=== PATIENT | male | born 1975 | race Caucasian/White ===

== ENCOUNTER 2024-08-31 11:55 | Outpatient (CLI) | payer BC, SELFPAY ==
--- NOTE | 2024-08-31 11:15 | DI.RAD_ITS ---
Exam(s) XR SHOULDER LT COMPLETE 2+V EXAM: XR SHOULDER LT COMPLETE 2+V CLINICAL HISTORY: left shoulder pain,m25.512. TECHNIQUE: 2D digital imaging was performed. Three views. COMPARISON: No exams were available for comparison FINDINGS: BONES: No acute fracture is present. No bony destructive lesion is seen. JOINTS: No dislocation present. Mild spurring at the AC joint. Mild spurring at the margin of the g lenoid. Glenohumeral joint space is maintained. SOFT TISSUE: Normal. IMPRESSION: Mild degenerative changes. DATA REPOSITORY: RADIATION DOSE DELIVERED:
--- OUTSIDE RECORDS SUMMARY | 2024-08-31 11:57 | XMS_ITS | Encounter Summary ---
Author Organization [facility] Address [address] [place] [address] Care Team Providers Care Automotive Sales Representative Name Role Phone Unknown, Provider Primary Care Provider Unava ilable Encounter Details Date Type Department Care Team (Late st Contact Info) Description 06/24/2023 Lab Requisition [facility] Pathology & Laboratory Medicine - [facility] [address] [place] [address] Damon Fraga, [address] [place] [address] Neoplasm of unspecified behavior of bone, soft tissue, and skin Social History Tobacco Use Types Packs/Day Years Used Date Smoking Tobacco: Never Assessed Sex and Gender Information Value Date Recorded Sex Assigned at Not on file Legal Sex Male 17:52 EDT Gender Identity Not on file Sexual Orientation Not on file documented as of this encounter Plan of Treatment Not on file documented as of this encounter Procedures Procedure Name Priority Date/Time Associated Diagnosis Comments SURGICAL PATHOLOGY Today 06/23/2023 11 :05 EDT Neoplasm of unspecified behavior of bone, soft tissue, and skin documented in this encounter Results * SURGICAL PATHOLOGY (06/23/2023 11:05 EDT) Note to Patient The following pathology results have been interpreted by your pathologist and may be available to you before your health provider has had the opportunity to review them. Please allow time for your provider to receive these results and explore management options, if applicable. 06/26/2023 10:19 EDT [facility] Final Diagnosis A. SKIN OF CHEEK, LEFT, SHAVE BIOPSY: - Intradermal nevus. 06/26/2023 10:19 EDT [facility] Attestation By the signature below, the attending physician certifies that they have 1) personally conducted a gross and/or microscopic examination of the described specimen(s), and/or personally interpreted the results of laboratory testing of the described specimen(s), and 2) personally rendered or confirmed the above diagnosis. 06/26/2023 10:19 [facility] at 1019 Clinical History Clinical diagnosis code: D49.2 06/26/2023 10:19 [facility] Gross Description A. Received in formalin labelled with proper patient identification (initials C, J) and left cheek is a shave biopsy of a roughly ovoid brown, finely nodular, hair-bearing papule (0.9 x 0.7 x 0.3 cm). The margin is inked blue, the specimen is trisected and entirely submitted in A1. Caryn Collazo 06/25/2023 11:39 06/26/2023 10:19 [facility] Performing Lab [facility] 06/26/2023 10:19 [facility] Scanned Images 06/26/2023 10:19 [facility] Tissue SPECIMEN FROM SKIN / Unknown 06/23/2023 11:05 EDT 06/24/2023 17:54 EDT us Damon Fraga DO PATHOLOGY ORDERABLES Fi nal Result Performing Organization Address City/State/[facility] Co de Phone Number [facility] [address] [place] [address] documented in this encounter Visit Diagnoses Diagnosis Neoplasm of unspecified behavior of bone, soft tissue, and skin documented in this encounter Care Teams Automotive Sales Representative Relationship Specialty Start Date End Date Unknown, Provider, PCP - General 05/22/23 documented as of this encounter
--- OUTSIDE RECORDS SUMMARY | 2024-08-31 11:57 | XMS_ITS | Continuity of Care Document ---
Author Organization [facility] Address [address] [place] [address] Care Team Providers Care Psychology Instructor Name Role Phone NOE BOWEN Primary Care Paularyan emmanuel Unavailable Encounter [facility] [id number] [id number] Date(s): 06/23/23 - 06/23/23 [facility] [address] [place] [address] us Encounter Diagnosis Abnormal skin growth(Discharge Diagnosis) - 06/22/23 Melanocytic nevus(Discharge Diagnosis) - 06/22/23 Discharge Disposition: Home or Self Care Attending Physician: Damon Fraga DO Referring Physician: NOE BOWEN Assessment and Plan Future Appointments Medications allopurinol 300 mg oral tablet 300 mg = 1 tab, Oral, BID, # 60 tab, 0 Refill(s) Start Date: 06/22/23 Status: Ordered amLODIPine 2.5 mg oral tablet 2.5 mg = 1 tab, Oral, Daily, # 30 tab, 0 Refill(s) Start Date: 06/22/23 Status: Ordered colchicine 0.6 mg oral capsule 0.6 mg = 1 cap, Oral, BID, # 60 cap, 0 Refill(s) Start Date: 06/22/23 Status: Ordered Fibricor 35 mg oral tablet 35 mg = 1 tab, Oral, Daily, # 30 tab, 0 Refill(s) Start Date: 06/22/23 Status: Ordered losartan 50 mg oral tablet 50 mg = 1 tab, Oral, Daily, # 30 tab, 0 Refill(s) Start Date: 06/22/23 Status: Ordered meloxicam 7.5 mg oral tablet 7.5 mg = 1 tab, Oral, Daily, # 30 tab, 0 Refill(s) Start Date: 06/22/23 Status: Ordered metFORMIN 500 mg oral tablet 500 mg = 1 tab, Oral, BID, # 180 tab, 0 Refill(s) Start Date: 06/22/23 Status: Ordered methocarbamol 500 mg oral tablet 1,000 mg = 2 tab, Oral, QID, # 80 tab, 0 Refill(s) Start Date: 06/22/23 Stop Date: 07/02/23 Status: Ordered traZODone 50 mg oral tablet 50 mg = 1 tab, Oral, TID, # 90 tab, 0 Refill(s) Start Date: 06/22/23 Status: Ordered zolpidem 10 mg oral tablet 10 mg = 1 tab, Oral, every day at bedtime, PRN as needed for insomnia, 0 Refill(s) Start Date: 06/22/23 Status: Ordered Problem List Condition Confirmation Course Effective Dates Status Health Status Informant Gout Confirmed Active Essential hypertension in child Confirmed Active Melanocytic nevus Confirmed Active Prediabetes Confirmed Active Pure hyperglyceridemia Confirmed Active Abnormal skin growth Confirmed Active Type 2 diabetes mellitus without complication Confirmed Active Physician Outpatient Note * Sanjana Albright: MODIFY Damon Fraga, DO: PERFORM, MODIFY Damon Fraga, DO: MODIFY Event Display: Office Clinic Note Physician Authored Date: [id number] THANG KRUEGER :1975 Age:47 years Sex:Male Visit Date:06/23/2023 Primary Care Physician: CHRISTINE AUSTIN-ZAIRE, NOE Freeman History of Present Illness New patient referred to the office for check of left cheek mole that has increased in size and changed in color. Patient notes that area is tender to the touch. Patient notes that he would like the area removed. He has had it for some time although is getting bigger and more tender. He does not have a history of skin cancer or a family history of it. Review of Systems Fatigue?? Negative.?? Fever?? Negative.?? Weight Loss?? Negative.?? Snoring?? Negative.?? Hoarseness?? Negative.?? Glaucoma?? Negative.?? Double Vision?? Negative.?? Other eye problems?? Negative.?? Loss of taste?? Negative.?? Loss of smell?? Negative.?? Sinus trouble?? Negative.?? Difficulty swallowing?? Negative.?? High blood pressure?? Negative.?? Heart failure?? Negative.?? Chest pain/Angina?? Negative.?? Heart Attack?? Negative.?? Ankle/Foot swelling?? Negative.?? Shortness of breath?? Negative.?? High cholesterol?? Negative.?? Cough?? Negative.?? Diabetes?? Negative.?? Ulcer?? Negative.?? Blood in Stool ?? Negative.?? Colitis?? Negative.?? Prostate Problems?? Negative.?? Kidney Stones? ? Negative.?? Hepatitis?? Negative.?? Liver trouble?? Negative.?? Gall bladder problems?? Negative.?? Kidney infection?? Negative.?? Blood in urine?? Negative.?? Bladder infection?? Negative.?? Arthritis?? Negative.?? Fibromyalgia?? Negative.?? Bone disease?? Negative.?? Joint disease?? Negative.??Back problems?? Negative.?? Breast (lump/tumor)?? Negative.?? Rashes?? Negative.?? Eczema?? Negative.?? Headaches?? Negative.?? Meningitis?? Negative.?? Thyroid Problems?? Negative.?? Pituitary Problems?? Negative.?? Bleeding Disorder?? Negative.?? Anemia?? Negative.?? Lymphoma?? Negative.?? Venereal Disease?? Negative.?? AIDS/HIV?? Negative.?? Cancer?? Negative.?? Blood transfusion?? Negative.??Seizures?? Negative.?? Loss of consciousness?? Negative.?? Head Injury/concussion?? Negative.?? Multiple Sclerosis?? Negative.?? Nervous disorder?? Negative.?? Anxiety?? Negative.?? Depression?? Negative.?? Frequent infection?? Negative.?? Environmental allergies?? Negative.?? Hay Fever?? Negative.?? Reflux?? Negative.?? Sleep apnea?? Negative.?? Physical Exam Vitals & Measurements GENERAL APPEARANCE:??The patient is awake, alert, and oriented and in no acute distress, Appears nutritionally sound, Healthy in appearance, Voice is strong, with no stridor or stertor, Handling secretions without difficulty.?PSYCH:??affect normal, good eye contact, oriented to person, oriented to place, oriented to time.?NEURO:??CN's II-XII grossly intact, Gait is normal, The patient has endpoint nystagmus only.?HEENT:??The patient is normocephalic with a normal facies with cranial nerves 2 through 12 bilaterally equal and intact. Pupils are equal and reactive to light with extraocular movements bilaterally equal and intact. There is no proptosis or enophthalmos. ?NECK:??There is no palpable lymphadenopathy. ?SKIN:??raised lesion of the left cheek??tender and increasing in??size ?MUSCULOSKELETAL:??normal gait and station.?? Procedure Surgery Consent??There was a full discussion of all treatment options including conservative management, second opinion and surgical intervention. The patient and or family has opted to proceed with surgical intervention. We have discussed risks and complications as it relates to the procedure and postoperative period, including but not limited to those listed on the consent. All of their questions were answered, consent was reviewed and signed. There is no history of any bleeding disorders or anesthesia complications. We will proceed..?PFP Shave Excision with Dermablade ? Location:??left cheek ? Size:??0.6-1.0 cm ?Prep:??Betadine used to prep site.?Consent:??The procedure was discussed, risks and complications explained and consent obtained.?Procedure:??Shave excision was performed, hemostasis was achieved and no complications.? Discharge Instructions:??Keep area moist with ointment and clean, follow up in seven days for pathology.?? Medical Decision Making: Upon injection there was??evidence of the cecum and sebaceous material. ??The patient still opted to have this shaved, he would like this looked at from a pathological standpoint. ??We did discuss formal excision with sutures he has deferred this Assessment/Plan 1.??Abnormal skin growth??D49.2 Discussed that we could proceed with shave biopsy today. Patient was understanding of the process and possible need for further excision if this returns as a cyst to remove the capsule. Patient was understanding and would like to proceed with shave today. Consent obtained, patient provided with post ??biopsy care instructions. He understands that we would call him in approximately 1 week with pathology results. 2.??Melanocytic nevus??D22.9 Follow Up Instructions prn, calling with pathology results Problem List/Past Medical History Ongoing Abnormal skin growth Essential hypertension in child Gout Melanocytic nevus Prediabetes Pure hyperglyceridemia Type 2 diabetes mellitus without complication Historical No qualifying data Medications allopurinol 300 mg oral tablet, 300 mg= 1 tab, Oral, BID amLODIPine 2.5 mg oral tablet, 2.5 mg= 1 tab, Oral, Daily colchicine 0.6 mg oral capsule, 0.6 mg= 1 cap, Oral, BID Fibricor 35 mg oral tablet, 35 mg= 1 tab, Oral, Daily losartan 50 mg oral tablet, 50 mg= 1 tab, Oral, Daily meloxicam 7.5 mg oral tablet, 7.5 mg= 1 tab, Oral, Daily metFORMIN 500 mg oral tablet, 500 mg= 1 tab, Oral, BID methocarbamol 500 mg oral tablet, 1000 mg= 2 tab, Oral, QID traZODone 50 mg oral tablet, 50 mg= 1 tab, Oral, TID zolpidem 10 mg oral tablet, 10 mg= 1 tab, Oral, every night at bedtime, PRN Allergies No active allergies Electronically Signed on 06/23/23 11:15 AM Damon Fraga, Patient Care team information Care Team Personnel Name: CHRISTINE WINKLER, NOE Freeman Position: No Access Member Role: Primary Care Physician
--- OUTSIDE RECORDS SUMMARY | 2024-08-31 11:57 | XMS_ITS | Clinical Summary ---
Author Organization [facility] Address [address] [place] [address] Care Team Providers Care Job Compositor Name Role Phone Unknown, Provider Primary Care Provider Unava ilable Social History Tobacco Use Types Packs/Day Years Used Date Smoking Tobacco: Never Assessed Sex and Gender Information Value Date Recorded Sex Assigned at Not on file Legal Sex Male 17:52 EDT Gender Identity Not on file Sexual Orientation Not on file Plan of Treatment Health Maintenance Due Date Last Done Comments Hepatitis C Screen 1975 Hepatitis B Vaccine (1 of 3 - 19+ 3-dose series) 08/28 COVID-19 Vaccine (2023- season) 2024 Insurance [facility] Address: [address] [address] Care Teams Job Compositor Relationship Specialty Start Date End Date Unknown, Provider, PCP - General 05/22/23
--- OUTSIDE RECORDS SUMMARY | 2024-08-31 11:57 | XMS_ITS | Referral Summary ---
Author Organization [facility] Address [address] [place] [address] Care Team Providers Care Puff Iron Operator Name Role Phone Unknown, Provider Primary Care Provider Unava ilable Social History Tobacco Use Types Packs/Day Years Used Date Smoking Tobacco: Never Assessed Sex and Gender Information Value Date Recorded Sex Assigned at Not on file Legal Sex Male 17:52 EDT Gender Identity Not on file Sexual Orientation Not on file Plan of Treatment Not on file [place] [address] [place] [address] Care Teams Puff Iron Operator Relationship Specialty Start Date End Date Unknown, Provider, PCP - General 05/22/23
--- OUTSIDE RECORDS SUMMARY | 2024-08-31 11:57 | XMS_ITS | Continuity of Care Document ---
Author Organization [facility] Address [address] [place] [address] Care Team Providers Care Mixer Operator Hot Metal Name Role Phone NOE FUNK Primary Care Physician Un available Encounter [facility] NBR [id number] Date(s): 03/06/23 - 03/06/23 [facility] [address] [place] [address]- Patient Care team information Care Team Personnel Name: NOE FUNK Position: No Access Member Role: Primary Care Physician
--- OUTSIDE RECORDS SUMMARY | 2024-08-31 11:58 | XMS_ITS | Continuity of Care Document ---
Author Organization [facility] Address [address] [place] [address] Care Team Providers Care State Archivist Name Role Phone Unavailable, Physician Primary Care Physician Un available Encounter [facility] Date(s): 11/27/22 - 11/27/[address] [facility] [address] [place] [address] us Discharge Disposition: Home or Self Care Attending Physician: Unavailable, Physician Admitting Physician: Unavailable, Physician Referring Physician: Unavailable, Physician Results Laboratory List Name Date CBC w/ Diff 11/27/22 Comprehensive Metabolic Panel 11/27/22 Hemoglobin A1c 11/27/22 Lipid Panel 11/27/22 Microalbumin/Creatinine Ratio Urine T4 11/27/22 Thyroid Stimulating Hormone 11/27/22 Automated Diff 11/27/22 Most recent to oldest [Reference Range]: 1 WBC [5.0-10.0 x10^3/mcL] 6.7 x10^3/mcL (11/27/22 12:36 PM) RBC [4.6-6.0 x10^6/mcL] 5.2 x10^6/mcL (11/27/22 12:36 PM) Neutro Auto [40.0-75.0 %] 57.2 % (11/27/22 12:36 PM) Lymph Auto [20.0-50.0 %] 35.1 % (11/27/22 12:36 PM) [place] Auto [2.0-15.0 %] 5.4 % (11/27/22 12:36 PM) Basophil Auto [0.0-1.0 %] 0.8 % (11/27/22 12:36 PM) BUN [7-18 mg/dL] 17 mg/dL (11/27/22 12:36 PM) Cholesterol Total [50-200 mg/dL] 212 mg/ dL *HI* (11/27/22 12:36 PM) T4 [4.7-13.3 mcg/dL] 9.6 mcg/dL (11/27/22 PM) LDL [0-130 mg/dL] See Comment mg/dL 1 *NA* (11/27/22 PM) Glucose Level [74-106 mg/dL] 169 mg/dL *HI* (11/27/22 PM) Potassium Level [3.5-5.1 mmol/L] 4.3 mmo l/L (11/27/2236 PM) MCV [80.0-96.0] 88.2 (11/27/22 PM) HDL [40-60 mg/dL] 34 mg/dL *LOW* (11/27/22 PM) AST [15-37 unit/L] 17 unit/L (11/27/22 PM) ALT [16-63 unit/L] 24 unit/L (11/27/22 PM) MCHC [31.0-35.0 g/dL] 33.9 g/dL (11/27/22 PM) Sodium Level [136-145 mmol/L] 140 mmol/L (11/27/22 PM) Hct [41.0-51.0 %] 46.3 % (11/27/22 PM) Triglycerides [0-150 mg/dL] 556 mg/dL *HI* (11/27/22 PM) Calcium Level [8.5-10.1 mg/dL] 8.8 mg/dL (11/27/22:36 PM) Albumin Level [3.4-5.0 g/dL] 4.0 g/dL (11/27/22:36 PM) Protein Total [6.4-8.2 g/dL] 7.4 g/dL (11/27/2236 PM) MCH [26.0-32.0 pg] 29.9 pg (11/27/22:36 PM) Neutro Absolute 3.8 x10^3/mcL *NA* (11/27/22 PM) Bilirubin Total [0.2-1.0 mg/dL] 0.7 mg/d L (11/27/22 12:36 PM) Hgb [14.0-18.0 g/dL] 15.7 g/dL (11/27/22 12:36 PM) Alk Phos [46-146 unit/L] 57 unit/L (11/27/22 12:36 PM) Platelets [130-450 x10^3/mcL] 200 x10^3/ mcL (11/27/22 12:36 PM) CO2 [21-32 mmol/L] 26 mmol/L (11/27/22 12:36 PM) TSH [0.358-3.740 mcIntlUnit/mL] 1.845 mc IntlUnit/mL (11/27/22 12:36 PM) eGFR Non-AA [>=60] 101 (11/27/22 12:36 PM) eGFR AA [>=60] 101 (11/27/22 12:36 PM) U Creatinine [30-125 mg/dL] 238 mg/dL *HI* (11/27/22 12:36 PM) Hemoglobin A1c [4.0-6.0 %] 6.0 % (11/27/22 12:36 PM) Chloride Level [98-107 mmol/L] 103 mmol/ L (11/27/22 12:36 PM) RDW-CV [11.5-17.0 %] 13.6 % (11/27/22 12:36 PM) U Microalb/Creat [0.0-30.0 mcg/mg] 1.7 m cg/mg (11/27/22 12:36 PM) U Microalb [0.0-20.0] 4.0 (11/27/22 12:36 PM) Imm Gran Auto [0.0-0.9 %] 0.3 % (11/27/22 12:36 PM) Creatinine Level [0.70-1.30 mg/dL] 0.93 mg/dL (11/27/22 12:36 PM) Eos, Auto [1.0-6.0 %] 1.2 % (11/27/22 12:36 PM) 1Result Comment: LDL calculation is INVALID when Triglyceride is greater than 400. Patient Care team information Care Team Personnel Name: Unavailable, Physician Position: No Access Member Role: Primary Care Physician Care Team Related Persons Name: JASSON KRUEGER
--- OUTSIDE RECORDS SUMMARY | 2024-08-31 11:58 | XMS_ITS | Continuity of Care Document ---
Author Organization [facility] Address [address] [place] [address] Encounter [facility] Date(s): 10/07/22 - 10/07/22 [facility] [address] [place] [address] Discharge Disposition: Home or Self Care Attending Physician: Kristen Tapia Admitting Physician: Kristen Tapia Results Laboratory List Name Date Comprehensive Metabolic Panel 10/07/22 Uric Acid 10/07/22 Most recent to oldest [Reference Range]: 1 BUN [7-18 mg/dL] 14 mg/dL (10/07/22 2:14 PM) Glucose Level [74-106 mg/dL] 225 mg/dL *HI* (10/07/22 2:14 PM) Potassium Level [3.5-5.1 mmol/L] 4.0 mmo l/L (10/07/22 2:14 PM) AST [15-37 unit/L] 18 unit/L (10/07/22 2:14 PM) ALT [16-63 unit/L] 19 unit/L (10/07/22 2:14 PM) Sodium Level [136-145 mmol/L] 139 mmol/L (10/07/22 2:14 PM) Calcium Level [8.5-10.1 mg/dL] 8.7 mg/dL (10/07/22 2:14 PM) Albumin Level [3.4-5.0 g/dL] 3.8 g/dL (10/07/22 2:14 PM) Protein Total [6.4-8.2 g/dL] 7.1 g/dL (10/07/22 2:14 PM) Bilirubin Total [0.2-1.0 mg/dL] 0.7 mg/d L (10/07/22 2:14 PM) Uric Acid [3.5-7.2 mg/dL] 6.8 mg/dL (10/07/22 2:14 PM) Alk Phos [46-146 unit/L] 55 unit/L (10/07/22 2:14 PM) CO2 [21-32 mmol/L] 24 mmol/L (10/07/22 2:14 PM) eGFR Non-AA [>=60] 106 (10/07/22 2:14 PM) eGFR AA [>=60] 106 (10/07/22 2:14 PM) Chloride Level [98-107 mmol/L] 105 mmol/ L (10/07/22 2:14 PM) Creatinine Level [0.70-1.30 mg/dL] 0.87 mg/dL (10/07/22 2:14 PM)
== END 2024-08-31 12:15 ==
LOC: DI 11:56
PROVIDERS: PCP Nurse Practitioner Family; Visit Provider Nurse Practitioner Family
DX: M25.512 Pain in left shoulder (principal)
CPT/HCPCS: 73030

== ENCOUNTER 2025-05-11 06:49 | Day surgery (SDC) | payer OTHER, SELFPAY ==
[2025-05-11] VITALS (19 sets, daily range): BP systolic 102–145; BP diastolic 52–102; PULSE 71–87; RESP 15–22; TEMP 36.2–36.7; O2SAT 95–100; BMI 34.8
--- NOTE | 2025-05-11 06:46 | W.ANESPRE ---
General Info Date of Service Date Performed: 05/11/25 Height: 5 ft 9 in Weight: 107.048 kg Body Mass Index (BMI): 34.8 Surgical Procedure: Operation Date: 05/11/25 07:55 Proposed Procedure Side Surgeon p Shoulder Rotator Cuff Arthroscopic w/Extensive Debridement, Biceps Tenodesis, Subacromial Decompression Left John Lujan MD Meds Allergies and Home Medications Allergies Allergy/AdvReac Type Severity Reaction Status Date / Time No Known Allergies Allergy Verified 05/11/25 07:03 Home Medication ?Medication ?Instructions ?Recorded metformin 500 mg tablet,extended 500 mg PO BID #180 tabs 08/30/24 release 24 hr olmesartan 5 mg tablet 5 mg PO DAILY #90 tabs 02/20/25 naproxen 250 mg tablet 250 - 500 mg (1 - 2 x 250 mg) PO 05/11/25 BID PRN Moderate pain #40 tabs oxycodone 5 mg tablet 5 - 10 mg (1 - 2 x 5 mg) PO Q4H 05/11/25 PRN Moderate to severe pain #18 tabs Current Visit Medications: Current Medications Generic Name Dose Route Start Last Admin Trade Name Freq PRN Reason Stop Dose Admin Ringer's Solution 1,000 mls @ 30 mls/hr 05/11/25 06:00 IV 05/11/25 23:59 INFUSION MARAH Cefazolin Sodium 3,000 mg/ 100 mls @ 200 mls/hr 05/11/25 06:00 Sodium Chloride IV 05/11/25 23:59 PREOP MARAH Tranexamic Acid/Sodium Chloride 1,000 mg in 100 mls @ 600 mls/hr 05/11/25 06:00 IVPB 05/11/25 23:59 PREOP MARAH IV Miscellaneous Supplies 1 each 05/11/25 06:00 Iv Access IV 05/11/25 23:59 DIRECTED MARAH Sodium Chloride 0 ml 05/11/25 06:00 Normal Saline Flush 10 Ml Syr IV 05/11/25 23:59 PRN PRN Sodium Chloride 0 ml 05/11/25 06:00 Normal Saline 10 Ml Vial IJ 05/11/25 23:59 DIRECTED PRN Sterile Water 0 ml 05/11/25 06:00 Water,Injection,Sterile 10 Ml Vial IJ 05/11/25 23:59 DIRECTED PRN PFSH Active Problems Active Problems: Problem Status Onset Code Diabetes mellitus Chronic E11.9 Superior labrum mgfjnnfg-wa-xjjdrakdi (SLAP) tear of left shoulder Acute S43.432A Left rotator cuff tear Acute ~02/2024 M75.102 Hypertriglyceridemia Acute E78.1 Insomnia Acute G47.00 Hypertension Chronic I10 Allergic rhinitis Acute J30.9 Medical History Medical History Gout Surgical History Surgical History Hx of anterior cruciate ligament surgery Left Hx of shoulder surgery Right SLAP repair H/O vasectomy Tobacco Smoking/Tobacco Use Status: Former Tobacco Use Smokeless tobacco user: chewing tobacco Passive smoking exposure: Yes Alcohol Alcohol Intake: current Alcohol intake frequency: a few times a week Substance Use Substance use: Never Substance use type: does not use Anesthesia Assessment and Plan Anesthesia History Personal History: No History of Anesthesia Complications Family History: No Family History of Anesthesia Complications Exercise Tolerance Exercise Tolerance: Metabolic Equivalents>4 Cardiac & Pulmonary Exam Cardiac Exam: Normal S1/S2 Heart Sounds Pulmonary Exam: Clear Bilateral Breath Sounds Implantable Cardiac Device Does patient have a Pacemaker or an ICD?: No Airway Exam Known Difficult Airway: No Mallampati Class: 1 Mouth Opening: Normal (> 3cm) Thyromental Distance: Greater than 3 cm Neck Range of Motion: Full ROM Neck Circumference: Normal Teeth Condition: Normal Dentition ASA Classification ASA Score: ASA 2 Emergency Case?: No NPO Status NPO Status: NPO Clears >2 hours, Solids >8 hours Anesthesia Plan Resuscitation Status: Full Code Anesthesia Technique: General Anesthesia Airway Planned: Endotracheal Tube Pain Management: Surgeon and patient request nerve block Monitors Used: Standard Monitors and SedLine Preoperative Comments:: GA ETT with brachial plexus block
--- NOTE | 2025-05-11 07:08 | W.PM.DSUDISC ---
Date of service: 05/11/25 Discharge Plan Disposition Patient Disposition: Home Condition: Stable Discharge Details Attending Provider: John Lujan Primary Care Provider: Sol Hargrove Home Meds and New Rx's Prescriptions: New naproxen 250 mg tablet 250 - 500 mg PO BID PRN (Reason: Moderate pain) Qty: 40 0RF oxycodone 5 mg tablet 5 - 10 mg PO Q4H PRN (Reason: Moderate to severe pain) Qty: 18 0RF Continued metformin 500 mg tablet extended release 24 hr 500 mg PO BID Qty: 180 3RF olmesartan 5 mg tablet 5 mg PO DAILY Qty: 90 3RF Discharge Instructions Additional Instructions: Surgery: Left shoulder arthroscopy with extensive debridement, subacromial decompression, and open biceps tenodesis 05/11/25 Activity: You should gradually increase range of motion motion and use of your shoulder. You may use your shoulder for all regular activities while protecting biceps repair. Avoid any weighted elbow flexion or resisted supination for 6-8 weeks. No heavy lifting, reaching overhead, or lifting away from body for approximately 2-3 months. You may use the sling whenever you are out of the house for a few weeks. At home it is best to remove the sling and rest the arm on a pillow at your side or support the operative side with your other hand. A physical therapy prescription will be sent electronically to start in about 3 weeks. Prescriptions: Naproxen 250 mg take 1-2 every 12 hours with a meal as needed for moderate pain Oxycodone 5 mg take 1-2 every 4-6 hours as needed for severe pain You may use mizc-wun-zqyflmr Tylenol (acetaminophen) as needed for mild pain. These pain medications may be taken all at once or in different combinations as needed. Also, recommend Colace (docusate) as a stool softener as surgery and pain medicine cause constipation. You may try sppr-uvv-ocehezy diphenhydramine (Benadryl) 25-50 mg nightly as a sleep aid Dressings: Remove shoulder bandage after 3 days. Leave the sticky Steri-Strips in place until they fall off or remove them after you shower. Cover the incisions with Band-Aids or leave them open to air. The biceps bandage (inside upper arm) is glued on separately. You may leave this one on a few days longer if it is difficult to remove. There is also glue underneath this bandage that can be left in place until it peels off. You may shower after 5 days. Follow-up: 10-[address] Lujan 05/23/25 @ 9:30AM You may take off the leg compression stockings this evening at home. You may also leave them on a few days longer if you have a history of leg swelling or edema. Let us know right away if you develop any redness, drainage, fevers, chest pain, or trouble breathing. Do not drink alcohol or drive for at least 24 hours after anesthesia. Please call the office during business hours with any questions or concerns. Stand Alone Forms: Anesthesia Discharge Inst., [place].Nerve Block Instructions, [facility] Gonzalez ([facility]) Discharge Orders Discharge Orders: Discharge Order (Routine); Ordered 05/11/25 Ordered By: Wander Francois DS: Diagnosis Discharge Diagnosis (1) Superior labrum mwjmjbrm-iq-nkmiqeiil (SLAP) tear of left shoulder: Status: Acute (2) Left rotator cuff tear: Status: Acute
--- NOTE | 2025-05-11 07:14 | W.PM.OP ---
Operative Note Operative Note PRE-OP DIAGNOSIS: Left: 1. Rotator cuff tear 2. SLAP tear 3. Bursitis POST-OP DIAGNOSIS: same PROCEDURE: Left: 1. Open biceps tenodesis, CPT# 27754. This involved reattaching the long head of the biceps tendon to the proximal humerus in the sub-pectoral area of the bicipital groove at the correct tension. 2. Extensive debridement, CPT# 24220. This involved using arthroscopic hand instruments, power instruments, and radiofrequency instruments to release the long head of the biceps tendon and debride areas of labral tearing, synovitis, and partial articular supraspinatus tearing working within the glenohumeral joint anteriorly, superiorly and posteriorly. 3. Subacromial decompression with partial acromioplasty, CPT# 57479. This involved using arthroscopic power instruments and a radiofrequency wand to complete a bursectomy and smooth the undersurface of the acromion. The driller's assistant was medically required in order to help assist in techniques above, which require positioning the arm, holding the arthroscope, and manipulating multiple instruments and sutures at the same time. This cannot be done without the help of an experienced driller's assistant. SURGEON: John Lujan [employer] SAL[employer] ASSOCIATE SEASONAL: Wander Francois ANESTHESIA TYPE: General LMA/ETT and Primary Nerve Block Refer to Anesthesia Record ESTIMATED BLOOD LOSS: 5 PATHOLOGY: none sent COMPLICATIONS: None Patient was transported to: PACU Patient's condition: stable Implants: Arthrex: Unicortical Proximal Biceps Tenodesis Button Indications: The patient was diagnosed with the above conditions and appropriately indicated for surgical intervention. Please see complete medical record for details. Findings: Exam under anesthesia: Full range of motion, no instability Glenohumeral joint: Obvious biceps anchor injection, surrounding synovitis, and SLAP tear. Moderate anterior labral fraying and chondromalacia. Posterior superior labral tearing and fraying as well. Intact subscapularis. Small area of mild thickness articular supraspinatus tearing of only about the anterior 1 cm with no significant thickness or exposed footprint. Intact articular infraspinatus. Subacromial space: Moderate bursitis. Minimal supraspinatus fraying largely intact and healthy. Procedure Description: In the operating room, general anesthesia was induced. Bilateral shoulders were examined. The patient was positioned in the beachchair position. All bony prominences were well-padded. Preoperative antibiotics were administered. The shoulder was prepped and draped in the usual sterile fashion. The correct patient, procedure, and side of the procedure were all verified prior to incision. Starting through the posterior portal a standard complete diagnostic arthroscopy was performed of the glenohumeral joint including inspection of the long head of the biceps, anterior and superior labrum, subscapularis tendon, supraspinatus and infraspinatus tendons, and axillary recess. The glenoid and humeral head cartilage as well as the posterior labrum were inspected from an anterior viewing portal. Significant findings and interventions noted above including debridement with the mechanical shaver and radiofrequency ablator of the SLAP tear, posterior superior labrum, anterior labrum thoroughly until anterior inferior, superior and rotator interval synovitis, and the anterior articular supraspinatus tendon tearing.. The biceps tendon was released from the superior labrum using arthroscopic scissors. Starting through the posterior portal, the arthroscope was directed into the subacromial space. A lateral 50 yard line lateral portal was created. A combination of power instruments and a radiofrequency ablator were used to debride bursitis anteriorly, posteriorly, and laterally as well as expose and smooth bone spurring on the undersurface of the acromion. The coracoacromial ligament was partially released. The bursectomy was completed viewing laterally and working from posteriorly and the rotator cuff was thoroughly inspected with findings noted above. The shoulder was drained of arthroscopic fluid. All portal sites were copiously irrigated. Bupivacaine with epinephrine was infiltrated about a medium-sized longitudinal incision at the inferior margin of the pectoralis major localized over the long head of the biceps tendon. Blunt and sharp dissection were used to expose the tendon in the bicipital groove. The tendon was brought out of the wound and kept off the skin on top of a blue towel. The correct location for sub-pectoral fixation was localized, prepped with a rasp, and then drilled with a 3.2 mm drill pin in a unicortical fashion. Using a fiber loop suture the tendon was prepped from the musculotendinous junction a few centimeters proximal. The excess tendon was amputated. The free suture ends were then passed through the unicortical button implant. The drill pin was removed and the implant was placed into the humeral intramedullary canal. The button was flipped and the sutures were tensioned bringing the tendon down to bone. Tension and fixation were then tested and found to be appropriate. The suture tails were brought on either side of the tendon and then tied compressing tendon to bone. The wound was copiously irrigated with normal saline. Subcutaneous tissue was closed using 3-0 Monocryl in a buried interrupted fashion. Skin was closed using 3-0 Monocryl in a buried subcuticular running fashion. Skin glue was applied over the incision. Mastisol was applied about the incision. The incision was covered with Telfa, gauze, and covered with a Tegaderm dressing. The portals were closed using 3-0 Monocryl in a buried fashion and then covered with Mastisol, Steri-Strips, Xeroform, dry gauze, and ABDs. The dressings were covered and secured with Medipore tape. The operative extremity was placed into a sling for immobilization. The patient awoke from anesthesia without complication and was transferred to the recovery room in a stable condition. Date of Procedure: 05/11/25
[2025-05-11] MEDS: Lactated Ringers 1,000 ML 30 ML IV (07:40)
[2025-05-11] MEDS: ceFAZolin 3,000 MG in Normal Saline 100 ML 200 MG IV (08:42)
[2025-05-11] MEDS: TRANEXAMIC ACID/SOD. CHL. 1,000 MG/100 ML BAG 600 MG IVPB (08:48)
[2025-05-11] MEDS: Bupivacaine 0.25% Pres-Free W/EPI 30 ML VIAL (09:17)
[2025-05-11] MEDS: EPINEPHrine 10 MG/10 ML ML (09:23)
--- NOTE | 2025-05-11 09:28 | W.ANESNERVE ---
Nerve Block Single Injection Procedure Date and Time Date Performed: 05/11/25 Procedure Start: 08:00 Location Where Procedure Performed Procedure Location: Day Surgery Unit Reason Performed: Postoperative Analgesia Requesting Provider: John Lujan Timeout Performed Timeout Performed: Yes Monitoring Used ECG, SpO2 and See EMR for corresponding vital signs Sterility Sterility: Hand Hygiene, Surgical Cap, Surgical Mask, Sterile Gloves and Chlorhexidine Sedation Given During Procedure Sedation Given (Indicate Dose Given): Versed IV Dose:: 2mg Patient Mental Status Patient Mental Status: Sedate with meaningful communication Nerve Block 1st Nerve Block: Laterality: Left Block Type: Interscalene Ultrasound Image Saved?: Yes Needle / Catheter Used: 100mm SonoPlex II Local Anesthetic Bolus (Indicate Dose Given): Lidocaine used for local infiltration of skin, Injected in 3-5ml increments after negative blood aspiration, Bupivacaine 0.5% Dose:: 10mL and Exparel Dose:: 10mL Additives (Indicate Dose Given): None Ultrasound: Sterile probe cover and gel used Nerve Stimulator: Supplement to Ultrasound use and No twitch or parasthesia noted < 0.5 mA Paresthesia: None Procedure Tolerated: No Complications Procedure Outcome: Successful Performed By: Ale Mayfield
--- NOTE | 2025-05-11 12:47 | W.ANESPOSTOP ---
Postoperative Evaluation Date, Time and Location Date Performed: 05/11/25 Time Performed: 12:03 Patient Location: Day Surgery Unit Vital Signs Most Recent Imported Vital Signs: Most Recent Vital Signs Temp Pulse Resp BP Pulse Ox 36.2 C L 79 16 110/78 97 05/11/25 11:25 05/11/25 11:05/11/25 11:05/11/25 11:05/11/25 11:25 Pain Score Most Recent Pain Score: Most Recent Pain Score Pain Level 2 05/11/25 11:25 Assessment Mental Status: Awake (Alert & Oriented to Patient Baseline) Airway and Respiratory Function: Patent airway with normal (patient baseline) respiratory exam Cardiovascular Function: Hemodynamically Stable Hydration Status: Adequately Hydrated Nausea & Vomiting: No Nausea or Vomiting Pain: Pt. Denies Any Pain Peripheral Nerve Block: Regional nerve block not resolved at time of post operative discharge
== END 2025-05-11 12:06 | disposition home or self-care (01) ==
PROVIDERS: PCP Nurse Practitioner Family; Visit Provider Student in an Organized Health Care Education/Training Program
PROC: (CPT 29827; principal; 2025-05-11 07:45)
DX: S43.432A Superior glenoid labrum lesion of left shoulder, initial encounter (principal); M94.212 Chondromalacia, left shoulder; M75.52 Bursitis of left shoulder; M75.102 Unspecified rotator cuff tear or rupture of left shoulder, not specified as traumatic; M25.512 Pain in left shoulder; G89.18 Other acute postprocedural pain; X58.XXXA Exposure to other specified factors, initial encounter
CPT/HCPCS: 23430; 29823; 29826; 64415; J0131; J0665; J0666; J0690; J1100; J1885; J2003; J2250; J2371; J2405; J2704

== ENCOUNTER 2025-09-06 08:21 | Outpatient (CLI) | payer OTHER, SELFPAY ==
[2025-09-06 10:14] LABS: ALT 33 U/L (10-49); AST 19 U/L (<34); Albumin 4.3 g/dL (3.2-5.0); Alkaline Phosphatase 47 U/L (46-116); Anion Gap 9.7 mmol/L (3-11); BUN 15 mg/dL (9-23); Bilirubin, Total 0.6 mg/dL (0.2-1.2); CO2 23.3 mmol/L (20.0-31.0); Calcium 8.9 mg/dL (8.3-10.6); Chloride 108 mmol/L (98-107); Cholesterol 169 mg/dL (<200); Glucose 150 mg/dL (74-106); HDL Cholesterol 34 mg/dL (>or=40); Potassium 4.2 mmol/L (3.5-5.1); Sodium 141 mmol/L (136-145); Total Protein 6.5 g/dL (5.7-8.2)
[2025-09-06 19:31] LABS: PSA, Screening 0.7 ng/mL (<=3.5)
== END 2025-09-06 08:22 | disposition home or self-care (01) ==
LOC: LBO 08:21
PROVIDERS: PCP Nurse Practitioner Family; Visit Provider Nurse Practitioner Family
DX: Z12.5 Encounter for screening for malignant neoplasm of prostate (principal); Z00.00 Encounter for general adult medical examination without abnormal findings; I10 Essential (primary) hypertension; E78.1 Pure hyperglyceridemia; E11.9 Type 2 diabetes mellitus without complications
CPT/HCPCS: 36415; 80053; 80061; 84153